=== PATIENT | male | born 1975 | race Two or more races ===

== ENCOUNTER 2018-07-09 09:08 | Emergency (ER) | payer SELFPAY ==
[~2018-07-09] VITALS: Ht 175.3 cm; Wt 111.0 kg
[2018-07-09] MEDS ORDERED: TETANUS, DIPHTHERIA, PERTUSSIS VAC/PF 0.5ML (>7YR OLD) IM ONE (11:45)
[2018-07-09] MEDS ORDERED: BACITRACIN ZINC OINT UDPKT TOP ONE (11:45)
[2018-07-09 12:55] VITALS: BP 146/91
== END 2018-07-09 12:57 | disposition home or self-care (01) ==
LOC: ER 09:08
DX: S81.852A Open bite, left lower leg, initial encounter (principal); W54.0XXA Bitten by dog, initial encounter; Y93.01 Activity, walking, marching and hiking; Y92.89 Other specified places as the place of occurrence of the external cause; Y99.8 Other external cause status
CPT/HCPCS: 90471; 90715; 99283